=== PATIENT | female | born 1990 | race Two or more races ===

== ENCOUNTER 2024-02-28 10:04 | Day surgery (SDC) | payer OTHER ==
[2024-02-27 12:36] LABS: HEMATOCRIT 35.4 % (36.0-45.00); HEMOGLOBIN 11.9 g/dL (12.0-15.00); MEAN CELL VOLUME 90.7 fL (80.00-100.00); MEAN CORPUSCULAR HEMOGLOBIN 30.5 pg (27.00-32.0); MEAN CORPUSCULAR HGB CONC 33.6 g/dl (32.0-36.0); PLATELET COUNT 194 K/uL (150-450); RED CELL DISTRIBUTION WIDTH 13.5 % (11.5-14.5)
[2024-02-27 13:02] LABS: INR 1.02; PARTIAL THROMBOPLASTIN TIME 27.5 SECONDS (22.0-34.0); PROTHROMBIN TIME 11.1 SECONDS (9.0-11.5)
[2024-02-27 14:10] LABS: RH NEGATIVE
[2024-02-28] MEDS ORDERED: POVIDONE-IODINE 118 ML BOTT TOP ONE (10:35)
[2024-02-28] MEDS ORDERED: CEFOXITIN SODIUM 2,000 MG VIAL IV ONE (10:53)
== END 2024-02-28 18:10 | disposition home or self-care (01) ==
LOC: CIR.AMB 10:04
PROVIDERS: ATTEND Obstetrics & Gynecology Maternal & Fetal Medicine
DX: O02.1 Missed abortion (principal); Z88.5 Allergy status to narcotic agent

== ENCOUNTER 2025-02-13 12:04 | Emergency (ER) | payer OTHER ==
[~2025-02-13] VITALS: Ht 157.5 cm; Wt 55.8 kg
[2025-02-13] MEDS ORDERED: BUTALB/ACETAMINOPHEN/CAFFEINE 1 TAB TABLET PO ONE ×2 (12:45→13:00)
[2025-02-13] MEDS ORDERED: DEXAMETHASONE SODIUM PHOSPHATE 4 MG/ML VIAL IM ONE (12:45)
[2025-02-13] MEDS ORDERED: PROMETHAZINE HCL 25 MG/ML AMPUL IM ONE (12:45)
[2025-02-13] MEDS ORDERED: DEXAMETHASONE SODIUM PHOSPHATE 4 MG/ML VIAL ONE (13:00)
[2025-02-13] MEDS ORDERED: PROMETHAZINE HCL 25 MG/ML AMPUL ONE (13:00)
[2025-02-13] MEDS ORDERED: BUTALBIT-ACETA1 EACH PO (13:56)
[2025-02-13 13:59] VITALS: BP 124/84; O2SAT 100
== END 2025-02-13 14:00 | disposition home or self-care (01) ==
LOC: ER 12:12
DX: O26.891 Other specified pregnancy related conditions, first trimester (principal); Z3A.10 10 weeks gestation of pregnancy; G43.909 Migraine, unspecified, not intractable, without status migrainosus